=== PATIENT | female | born 1975 | race Caucasian/White ===

== ENCOUNTER → 2016-09-22 | Outpatient (CLI) | payer OTHER ==
[~2016-09-22] MED LIST: ADVIN25050 PO; ALBUAER19 INH; CYAN100020 PO; FEXO1TAB46 PO; IBUP-1428 PO; IPRASOL4 INH; LEVO50TA PO; PRVHFAIN INH; SYMIN160 INH
== END | disposition home or self-care (01) ==
LOC: C.LAB 14:05
PROVIDERS: ATTEND Family Medicine
DX: E03.9 Hypothyroidism, unspecified (principal)

== ENCOUNTER → 2016-12-24 | Outpatient (CLI) | payer OTHER | END | disposition home or self-care (01) | LOC: C.LAB 15:26 | PROVIDERS: ATTEND Family Medicine | DX: R53.83 Other fatigue (principal) ==

== ENCOUNTER 2017-02-01 21:46 | Emergency (ER) | payer OTHER ==
[~2017-02-01] VITALS: Ht 172.7 cm; Wt 84.0 kg
[~2017-02-01 21:46] MED LIST changes: -CYAN100020 PO; -IPRASOL4 INH; -PRVHFAIN INH
[2017-02-01] MEDS ORDERED: ACETAMINOPHEN 500 MG TAB PO STA (22:00)
[2017-02-01 22:04] VITALS: TEMP 37.2; Ht 172.7 cm; Wt 84.0 kg
[2017-02-01] MEDS ORDERED: PRVHFAIN INH (22:25)
[2017-02-01] MEDS ORDERED: CYAN100020 PO (22:25)
[2017-02-01] MEDS ORDERED: IPRASOL4 INH (22:25)
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
[2017-02-01 23:15] VITALS: BP 113/89; PULSE 99; O2SAT 97
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
== END 2017-02-01 23:16 | disposition home or self-care (01) ==
LOC: EDBD 21:46 → C.EDD 21:47
DX: S39.012A Strain of muscle, fascia and tendon of lower back, initial encounter (principal); S09.90XA Unspecified injury of head, initial encounter; R51 Headache; E78.00 Pure hypercholesterolemia, unspecified; E05.90 Thyrotoxicosis, unspecified without thyrotoxic crisis or storm; K21.9 Gastro-esophageal reflux disease without esophagitis; J45.909 Unspecified asthma, uncomplicated; Z79.899 Other long term (current) drug therapy; Z82.49 Family history of ischemic heart disease and other diseases of the circulatory system; V48.6XXA Car passenger injured in noncollision transport accident in traffic accident, initial encounter